=== PATIENT | male | born 1950 | race Caucasian/White ===

== ENCOUNTER 2022-01-31 05:36 | Inpatient (IN) | payer MEDICARE, BC ==
[2022-01-23 15:48] LABS: BASOPHILS % (AUTO) 0.5 % (0-1); EOSINOPHILS # (AUTO) 0.1 X10'3 (0-0.9); EOSINOPHILS % (AUTO) 1.7 % (0-6); LYMPHOCYTES # (AUTO) 0.5 X10'3 (1.1-4.8); LYMPHOCYTES % (AUTO) 9.4 % (21-51); MEAN CORPUSCULAR HEMOGLOBIN 29.8 PG (27.0-31.0); MEAN CORPUSCULAR HGB CONC 33.6 g/dL (33.0-36.5); MEAN CORPUSCULAR VOLUME 88.8 FL (78-98); MEAN PLATELET VOLUME 8.2 FL (7.4-10.4); MONOCYTES # (AUTO) 0.6 X10'3 (0-0.9); MONOCYTES % (AUTO) 11.4 % (2-12); PRE OP HEMATOCRIT 33.5 % (42.0-52.0); PRE OP HEMOGLOBIN 11.2 g/dL (14.0-17.9); PRE OP PLATELET COUNT 183 X10'3 (140-440); RED BLOOD COUNT 3.77 X10'6 (4.70-6.10); RED CELL DISTRIBUTION WIDTH 13.7 % (11.5-14.5)
[2022-01-23 16:02] LABS: ALBUMIN 3.6 G/DL (3.4-5.0); ALBUMIN/GLOBULIN RATIO 0.8 (1.1-1.5); ALKALINE PHOSPHATASE 72 IU/L (46-116); BLOOD UREA NITROGEN 26 MG/DL (7-18); CHLORIDE 103 MMOL/L (99-107); PRE OP ALT 22 U/L (30-65); PRE OP ANION GAP 9 (8-16); PRE OP AST 21 U/L (10-37); PRE OP BILIRUB, TOTAL 0.8 MG/DL (0.0-1.0); PRE OP GLUCOSE 94 MG/DL (70-104); PRE OP POTASSIUM 3.9 MMOL/L (3.4-5.1); PRE OP SODIUM 138 MMOL/L (135-145); TOTAL CARBON DIOXIDE 25.6 MMOL/L (24-32); eGFR 74 ML/MIN
[2022-01-31] VITALS (19 sets, daily range): BP systolic 103–166; BP diastolic 59–91
[~2022-01-31] VITALS: Ht 180.3 cm; Wt 114.2 kg
[~2022-01-31 05:36] MED LIST: ATOR10TA70 PO; FLUT12AE9 PO; LISI1TAB49 PO; MONT10TA21 PO; OMEP40CA21 PO; cefazolin/dext.iso 2gm/50ml IV ONE; famotidine 20mg tablet PO ONE; ringers solution, lacted 1,000 ML IV SCH
[2022-01-31] MEDS ORDERED: albuterol 2.5 MG/3 ML nebule NEB ONE (06:30)
[2022-01-31] MEDS ORDERED: BUPIVAcaine 0.5% inj/PF 30 ML ONE (06:48)
[2022-01-31] MEDS ORDERED: LIDOcaine 1% 30ml preserv. free vial ONE (06:48)
[2022-01-31] MEDS ORDERED: ringers solution, lacted 1,000 ML IV SCH (07:15)
[2022-01-31] MEDS ORDERED: labetalol 20mg/4ml (5mg/ml) syringe IV PRN (07:15)
[2022-01-31] MEDS ORDERED: morphine 4 MG/ML inj SYRINge IV PRN (07:15)
[2022-01-31] MEDS ORDERED: hydrALAZINE 20mg/ml inj. IV PRN (07:15)
[2022-01-31] MEDS ORDERED: morphine 2 MG/ML inj. syringe IV PRN (07:15)
[2022-01-31] MEDS ORDERED: fentaNYL/PF 50MCG/1 ML 2ML syringe IV PRN ×2 (07:15)
[2022-01-31] MEDS ORDERED: ondansetron/PF 4mg/2ml inj IV PRN ×2 (07:15→21:05)
[2022-01-31] MEDS ORDERED: fentaNYL /PF 50mcg/ml 5ml ampule ONE (07:22)
[2022-01-31] MEDS ORDERED: MIDAZolam 1 MG/ML 5ML VIAL ONE (07:22)
[2022-01-31] MEDS ORDERED: LIDOcaine 2% (20mg/ml) 5ml vial ONE (07:24)
[2022-01-31] MEDS ORDERED: glycopyrrolate 0.2mg/ml inj ONE (07:24)
[2022-01-31] MEDS ORDERED: neostigmine methylsulfate 1 MG/ML 10ml vial ONE (07:24)
[2022-01-31] MEDS ORDERED: rocuronium 10mg/ml inj IV ONE ×4 (07:24→11:28)
[2022-01-31] MEDS ORDERED: ondansetron/PF 4mg/2ml inj ONE (07:24)
[2022-01-31] MEDS ORDERED: propofol inj 20 ML IV ONE (07:24)
[2022-01-31] MEDS ORDERED: PHENYLephrine 10mg/ml 5ml injection IV ONE (07:33)
[2022-01-31] MEDS ORDERED: dexamethasone sod phosphate 10mg/ml inj ONE (07:33)
[2022-01-31] MEDS ORDERED: sevoflurane 250ml liquid IH ONE (07:33)
[2022-01-31] MEDS ORDERED: BUPIVAcaine 0.5% inj/PF 30 ml vial IJ ONE (08:14)
[2022-01-31] MEDS ORDERED: sugammadex 200mg/2ml injection IV ONE (09:38)
[2022-01-31] MEDS ORDERED: diatr meglu/diatrizoate 30ml oral sol.-(3 dose) bottle ONE (10:00)
[2022-01-31] MEDS ORDERED: LACTED IV SCH (12:05)
[2022-01-31] MEDS ORDERED: naloxone 0.4 mg/ml inj IV PRN (12:05)
[2022-01-31] MEDS ORDERED: HYDROmorph/NS 0.2 mg/ml PCA 100 ML IV SCH (12:05)
[2022-01-31] MEDS ORDERED: POTASSIUM CL IV SCH (12:05)
[2022-01-31] MEDS ORDERED: RINGERS IV SCH (12:05)
--- NOTE | 2022-01-31 12:05 | NUR ---
Received from OR via SURGICAL BED , accompanied by Anesthesiologist ANNAMARIE and report given by Anesthesiolgist. PATIENT WITH 4 LATERAL BANDAIDS PRESENT. NO DRAINAGE PRESTN. VSS. DENIES PAIN AT THIS TIME. Addendum: 01/31/22 at 1218 by Nikhil Browne RN RN Amended: Links added.
--- NOTE | 2022-01-31 13:03 | NUR ---
Patient in room PAS IN 901. I have received report from Nikhil NGUYEN and had the opportunity to ask questions and awaiting patients arrival .
--- NOTE | 2022-01-31 13:15 | NUR ---
PATIENT HAS MET ALL CRITERIA FOR TRANSFER TO THE SURGICAL FLOOR. VSS. DRESSINGS INTACT. BED LOW, CALL LIGHT PRESENT AND 2 RAILS UP. RN PRESENT TO ACCEPT CARE OF PATIENT AND REPORT HAS BEEN CALLED. ALL QUESTIONS ANSWERED TO ACCEPTING RN JENNIFER- WHO WAS PRESENT AT BEDSIDE TO ASSIST IN SET UP AND TO ASSESS PATIENT. ONE LABELED BAG OF BELONGINGS WELL GLASSES IN A LABELED CONTAINER ARE NOW IN ROOM AT BEDSIDE 345B.CARE TURNED OVER. Addendum: 01/31/22 at 1344 by Nikhil Carpenter - WENDY RN Amended: Links added.
[2022-01-31] MEDS: HYDROmorph/NS 0.2 mg/ml PCA 100 ML IV SCH ×6 (13:16→23:00)
[2022-01-31] MEDS: potassium Cl 20mEq in NS 1,000 ML IV SCH ×2 (13:45→21:52)
--- NOTE | 2022-01-31 13:49 | NUR ---
patient arrived in room 345b in stable condition. Four bandaides CDI to abdomen. patient states pain level 6. patient has dilaudid cadd, instructions reiterated . VS 160/85,98%O2 HR 97 Resp 18. post op vitals initiated. IDC in place draining clear yellow urine . will continue to monitor patient
--- NOTE | 2022-01-31 18:30 | NUR ---
Problems reprioritized. Patient report given, questions answered & plan of care reviewed with Amy NGUYEN.
[2022-01-31] MEDS: budesonide 0.5mg/2ml UD nebule IH SCH (20:35)
[2022-01-31] MEDS: heparin, porcine 5000 units/ml vial SQ SCH (20:58)
[2022-02-01] VITALS: BP 135/79
[2022-02-01] MEDS: HYDROmorph/NS 0.2 mg/ml PCA 100 ML IV SCH ×6 (01:00→11:00)
[2022-02-01] MEDS: potassium Cl 20mEq in NS 1,000 ML IV SCH (03:52)
[2022-02-01 04:00] VITALS: BP 126/61
[2022-02-01 06:08] LABS: ALBUMIN 2.8 G/DL (3.4-5.0); ANION GAP 7 (8-16); BASOPHILS % (AUTO) 0.1 % (0-1); BLOOD UREA NITROGEN 18 MG/DL (7-18); BUN/CREATININE RATIO 17.8 (5.4-32.0); CALCIUM 7.9 MG/DL (8.5-10.1); CHLORIDE 105 MMOL/L (99-107); CREATININE 1.01 MG/DL (0.60-1.10); EOSINOPHILS % (AUTO) 0 % (0-6); GLUCOSE 125 MG/DL (70-104); HEMATOCRIT 29.3 % (42.0-52.0); HEMOGLOBIN 9.9 g/dl (14.0-17.9); LYMPHOCYTES # (AUTO) 0.5 X10'3 (1.1-4.8); LYMPHOCYTES % (AUTO) 6.4 % (21-51); MEAN CORPUSCULAR HEMOGLOBIN 30.4 PG (27.0-31.0); MEAN CORPUSCULAR HGB CONC 33.9 g/dL (33.0-36.5); MEAN CORPUSCULAR VOLUME 89.7 FL (78-98); MEAN PLATELET VOLUME 8.2 FL (7.4-10.4); MONOCYTES # (AUTO) 0.9 X10'3 (0-0.9); MONOCYTES % (AUTO) 12.4 % (2-12); NEUTROPHILS # (AUTO) 6.1 X10'3 (1.8-7.7); NEUTROPHILS % (AUTO) 81.1 % (42-75); PLATELET COUNT 154 X10'3 (140-440); POTASSIUM 4.7 MMOL/L (3.5-5.1); RED BLOOD COUNT 3.27 X10'6 (4.70-6.10); RED CELL DISTRIBUTION WIDTH 14.2 % (11.5-14.5); SODIUM 140 MMOL/L (135-145); TOTAL CARBON DIOXIDE 28.3 MMOL/L (24-32); WHITE BLOOD COUNT 7.5 X10'3 (4.5-11.0); eGFR 73 ML/MIN
--- NOTE | 2022-02-01 06:40 | NUR ---
Problems reprioritized. Patient report given, questions answered & plan of care reviewed with WENDY Rodríguez.
--- NOTE | 2022-02-01 06:51 | NUR ---
Seth cath removed 10 cc of saline out of balloon. Pt tolerated well.
--- NOTE | 2022-02-01 06:57 | NUR ---
Spoke to Breann from Radiology about the order for esophagram today. She said patient does not need to be NPO and that we do not have a staff master certified rv technician. She told me that it will be an interventional radiologist who can do it and that we go with what their schedule but hoping we can get it done early.
[2022-02-01 07:00] VITALS: BP 115/71
[2022-02-01] MEDS ORDERED: HYDROchlorothiazide 12.5mg capsule PO SCH (08:00)
[2022-02-01] MEDS ORDERED: pantoprazole 40mg Tablet.DR PO SCH (08:00)
[2022-02-01] MEDS ORDERED: montelukast 10mg tablet PO SCH (08:00)
[2022-02-01] MEDS ORDERED: lisinopril 10 MG tablet PO SCH (08:00)
[2022-02-01] MEDS: heparin, porcine 5000 units/ml vial SQ SCH (09:39)
[2022-02-01] MEDS: budesonide 0.5mg/2ml UD nebule IH SCH (10:00)
[2022-02-01] MEDS ORDERED: normal saline 500ml IV soln 500 ML IV ONE (11:35)
[2022-02-01 12:00] VITALS: BP 126/70
[2022-02-01] MEDS ORDERED: oxyCODONE/APAP 5-325mg tablet PO PRN (14:10)
--- NOTE | 2022-02-01 14:16 | NUR ---
Spoke to Dr. Pham on the phone, he said he is planning to send patient home today provided patient tolerating the full liquid diet, and esophagram result is fine. He instructed me to have the dietitian come talk to patient in regards to his full liquid diet that is expected to be for 2 weeks.
[2022-02-01] MEDS ORDERED: CADD PCA waste documentation MC SCH (14:30)
--- NOTE | 2022-02-01 14:56 | NUR ---
Nutrition consult: Pt s/p Toupet fundoplication. Pt seen at bedside provided with written and verbal nutrition therapy education which includes diet progression and ONS coupons. All of patient's questions were answered at this time. RD contact information provided and pt encouraged to reach out if needed. Will remain available. Addendum: 02/01/22 at [address] Amended: Links added.
--- NOTE | 2022-02-01 15:34 | NUR ---
Spoke to Dr. Pham regarding patient tolerated his full liquid diet for lunch, esophagram negative for leak, dietitian saw the patient already, and that patient wants his prescription send to [facility] in [employer] at [facility]. Dr. Pham said he will write a discharge order.
[2022-02-01] MEDS ORDERED: PER5325T PO (16:14)
--- NOTE | 2022-02-01 17:00 | NUR ---
Discharged patient home accompanied by his at bedside. Discharge instructions given to patient, patient verbalized understanding of all instructions given. Peripheral IV catheter removed, tip intact. Instructed patient to ensure he has all his belongings with him before leaving the hospital. Patient was given Percocet prior to leaving the hospital, patient was given education about taking narcotic, side effects, precaution.
== END 2022-02-01 17:11 | disposition home or self-care (01) | DRG 328 ==
LOC: PAS IN 05:36 → SUR 3N 13:40
PROVIDERS: ADMIT Surgery; ATTEND Surgery
PROC: 0DV44ZZ Restriction of Esophagogastric Junction, Percutaneous Endoscopic Approach (ICD-10-PCS; 2022-01-31)
PROC: 8E0W4CZ Robotic Assisted Procedure of Trunk Region, Percutaneous Endoscopic Approach (ICD-10-PCS; 2022-01-31)
PROC: 0BQT4ZZ Repair Diaphragm, Percutaneous Endoscopic Approach (ICD-10-PCS; principal; 2022-01-31 07:33)
PROC: BD11YZZ Fluoroscopy of Esophagus using Other Contrast (ICD-10-PCS; 2022-02-01)
DX: K44.9 Diaphragmatic hernia without obstruction or gangrene (principal); E66.9 Obesity, unspecified; Z79.899 Other long term (current) drug therapy; Z68.35 Body mass index [BMI] 35.0-35.9, adult; I10 Essential (primary) hypertension; G47.33 Obstructive sleep apnea (adult) (pediatric); J45.909 Unspecified asthma, uncomplicated; E78.5 Hyperlipidemia, unspecified; K21.9 Gastro-esophageal reflux disease without esophagitis
CPT/HCPCS: 36415; 71045; 74220; 80048; 80053; 82948; 85025; 87081; 93005; 94640; A4618; C1758; G0378; J0690; J1100; J1170; J1644; J2250; J2270; J2370; J2405; J2704; J2710; J3010; J3480; J3490; J7120; Q9963; S0020; U0003; U0005

== ENCOUNTER 2022-09-27 16:17 | Emergency (ER) | payer MEDICARE, BC ==
[~2022-09-27] VITALS: Ht 180.3 cm; Wt 109.1 kg
[~2022-09-27 16:17] MED LIST changes: +PER5325T PO; -cefazolin/dext.iso 2gm/50ml IV ONE; -famotidine 20mg tablet PO ONE; -ringers solution, lacted 1,000 ML IV SCH
[2022-09-27 16:40] VITALS: BP 128/67
[2022-09-27 17:49] LABS: BASOPHILS % (AUTO) 0.6 % (0-1); EOSINOPHILS # (AUTO) 0.1 X10'3 (0-0.9); EOSINOPHILS % (AUTO) 1.8 % (0-6); HEMATOCRIT 39.2 % (42.0-52.0); HEMOGLOBIN 13.9 g/dl (14.0-17.9); LYMPHOCYTES # (AUTO) 0.6 X10'3 (1.1-4.8); LYMPHOCYTES % (AUTO) 9.1 % (21-51); MEAN CORPUSCULAR HEMOGLOBIN 34.6 PG (27.0-31.0); MEAN CORPUSCULAR HGB CONC 35.5 g/dL (33.0-36.5); MEAN CORPUSCULAR VOLUME 97.5 FL (78-98); MEAN PLATELET VOLUME 8.3 FL (7.4-10.4); MONOCYTES # (AUTO) 0.6 X10'3 (0-0.9); MONOCYTES % (AUTO) 9.2 % (2-12); NEUTROPHILS # (AUTO) 5.6 X10'3 (1.8-7.7); NEUTROPHILS % (AUTO) 79.3 % (42-75); PLATELET COUNT 182 X10'3 (140-440); RED BLOOD COUNT 4.02 X10'6 (4.70-6.10); RED CELL DISTRIBUTION WIDTH 13.3 % (11.5-14.5)
[2022-09-27 17:54] LABS: ALANINE AMINOTRANSFERASE 36 U/L (12-78); ALBUMIN 3.7 G/DL (3.4-5.0); ALBUMIN/GLOBULIN RATIO 0.8 (1.1-1.5); ALKALINE PHOSPHATASE 96 IU/L (46-116); ANION GAP 4 (8-16); ASPARTATE AMINO TRANSFERASE 41 U/L (10-37); BILIRUBIN,TOTAL 2.1 MG/DL (0.1-1.0); BLOOD UREA NITROGEN 22 MG/DL (7-18); CALCIUM 9.1 MG/DL (8.5-10.1); CHLORIDE 102 MMOL/L (99-107); GLUCOSE 131 MG/DL (70-104); LIPASE 81 U/L (73-393); POTASSIUM 4.2 MMOL/L (3.5-5.1); SODIUM 137 MMOL/L (135-145); TOTAL CARBON DIOXIDE 31.5 MMOL/L (24-32); TOTAL PROTEIN 8.5 G/DL (6.4-8.2); eGFR 66 ML/MIN
== END 2022-09-27 23:10 | disposition left against medical advice (07) ==
LOC: ER 16:18
DX: R10.9 Unspecified abdominal pain (principal); Z53.21 Procedure and treatment not carried out due to patient leaving prior to being seen by health care provider
CPT/HCPCS: 36415; 80053; 83690; 85025

== ENCOUNTER 2023-01-21 14:19 | Emergency (ER) | payer MEDICARE, BC ==
[~2023-01-21] VITALS: Ht 188 cm; Wt 113.6 kg
[~2023-01-21 14:19] MED LIST changes: +MONT-47 PO; -MONT10TA21 PO
[2023-01-21 14:43] VITALS: BP 140/74
[2023-01-21 15:12] LABS: BASOPHILS % (AUTO) 0.3 % (0-1); EOSINOPHILS % (AUTO) 0.1 % (0-6); HEMATOCRIT 37.8 % (42.0-52.0); HEMOGLOBIN 13.4 g/dl (14.0-17.9); LYMPHOCYTES # (AUTO) 0.6 X10'3 (1.1-4.8); LYMPHOCYTES % (AUTO) 6.5 % (21-51); MEAN CORPUSCULAR HEMOGLOBIN 34.3 PG (27.0-31.0); MEAN CORPUSCULAR HGB CONC 35.3 g/dL (33.0-36.5); MEAN CORPUSCULAR VOLUME 97.2 FL (78-98); MEAN PLATELET VOLUME 7.3 FL (7.4-10.4); MONOCYTES # (AUTO) 1.4 X10'3 (0-0.9); NEUTROPHILS # (AUTO) 7.7 X10'3 (1.8-7.7); NEUTROPHILS % (AUTO) 79.1 % (42-75); PLATELET COUNT 181 X10'3 (140-440); RED BLOOD COUNT 3.89 X10'6 (4.70-6.10); RED CELL DISTRIBUTION WIDTH 12.5 % (11.5-14.5); WHITE BLOOD COUNT 9.7 X10'3 (4.5-11.0)
[2023-01-21] MEDS ORDERED: predniSONE 20 mg tablet PO ONE (15:15)
[2023-01-21] MEDS ORDERED: ipratropium/albuterol 3ml nebule NEB ONE (15:15)
[2023-01-21 15:27] LABS: D-DIMER 0.44 MG/L FEU (0-0.50)
[2023-01-21 15:36] LABS: ANION GAP 6 (8-16); BILIRUBIN,TOTAL 1.4 MG/DL (0.1-1.0); BLOOD UREA NITROGEN 18 MG/DL (7-18); BUN/CREATININE RATIO 16.5 (10.0-20.0); CALCIUM 8.7 MG/DL (8.5-10.1); CHLORIDE 98 MMOL/L (99-107); CREATININE 1.09 MG/DL (0.60-1.10); GLUCOSE 176 MG/DL (70-104); POTASSIUM 3.5 MMOL/L (3.5-5.1); SODIUM 131 MMOL/L (135-145); TOTAL PROTEIN 8.5 G/DL (6.4-8.2); eGFR 67 ML/MIN
[2023-01-21 15:37] LABS: ALANINE AMINOTRANSFERASE 16 U/L (12-78); ALBUMIN/GLOBULIN RATIO 0.5 (1.1-1.5); ALKALINE PHOSPHATASE 78 IU/L (46-116); ASPARTATE AMINO TRANSFERASE 18 U/L (10-37)
[2023-01-21] MEDS ORDERED: DOXYCYCLINE 100MG CAPSULE PO STA (16:02)
[2023-01-21] MEDS ORDERED: amoxicillin 250mg capsule PO ONE (16:05)
[2023-01-21 17:38] LABS: CLARITY,URINE SLIGHTLY CLOUDY (Clear); COLOR,URINE YELLOW (Yellow); GLUCOSE, URINE NEGATIVE (Neg); KETONES,URINE NEGATIVE (Neg); LEUKOCYTE ESTERASE ,URINE NEGATIVE (Neg); NITRITES, URINE NEGATIVE (Neg); OCCULT BLOOD,URINE LARGE (Neg); PROTEIN,URINE 100 mg/dl (Neg)
[2023-01-21 17:43] LABS: UA COLLECTION TYPE CLN CATCH MIDSTREAM
[2023-01-21 17:45] LABS: RBC,URINE 20-50 /HPF (0-2); WBC,URINE 0-4 /HPF (0-4)
[2023-01-21 17:46] LABS: BACTERIA,URINE 1+ /HPF (Neg); SQUAMOUS EPITHELIAL CELL,UR FEW /LPF (FEW)
[2023-01-21] MEDS ORDERED: ALBU8HFA PO (17:56)
[2023-01-21] MEDS ORDERED: DOXY100C76 PO (17:56)
[2023-01-21] MEDS ORDERED: PRED20TA PO (17:56)
[2023-01-21] MEDS ORDERED: AMOX500C2 PO (17:56)
== END 2023-01-21 18:16 | disposition home or self-care (01) ==
LOC: ER 14:20
DX: J18.9 Pneumonia, unspecified organism (principal); Z20.822 Contact with and (suspected) exposure to COVID-19; Z79.899 Other long term (current) drug therapy
CPT/HCPCS: 36415; 71045; 80053; 81001; 83605; 83880; 84145; 84484; 85025; 85379; 87040; 87502; 87503; 87811; 93005; 94640; 99285; J7512

== ENCOUNTER 2023-02-08 06:27 | Day surgery (SDC) | payer MEDICARE, BC ==
[2023-02-05 16:03] LABS: BASOPHILS # (AUTO) 0.1 X10'3 (0-0.2); BASOPHILS % (AUTO) 1.7 % (0-1); EOSINOPHILS # (AUTO) 0.1 X10'3 (0-0.9); LYMPHOCYTES # (AUTO) 0.5 X10'3 (1.1-4.8); LYMPHOCYTES % (AUTO) 8.4 % (21-51); MEAN CORPUSCULAR HEMOGLOBIN 33.6 PG (27.0-31.0); MEAN CORPUSCULAR HGB CONC 34.6 g/dL (33.0-36.5); MEAN CORPUSCULAR VOLUME 97.2 FL (78-98); MEAN PLATELET VOLUME 7.1 FL (7.4-10.4); MONOCYTES # (AUTO) 0.8 X10'3 (0-0.9); MONOCYTES % (AUTO) 12.2 % (2-12); NEUTROPHILS # (AUTO) 4.7 X10'3 (1.8-7.7); NEUTROPHILS % (AUTO) 75.7 % (42-75); PRE OP HEMOGLOBIN 12.5 g/dL (14.0-17.9); PRE OP PLATELET COUNT 258 X10'3 (140-440); RED CELL DISTRIBUTION WIDTH 12.4 % (11.5-14.5)
[2023-02-05 16:10] LABS: ALBUMIN 2.7 G/DL (3.4-5.0); ALBUMIN/GLOBULIN RATIO 0.5 (1.1-1.5); ALKALINE PHOSPHATASE 76 IU/L (46-116); BLOOD UREA NITROGEN 19 MG/DL (7-18); BUN/CREATININE RATIO 18.4 (10.0-20.0); CALCIUM 9.1 MG/DL (8.5-10.1); CHLORIDE 101 MMOL/L (99-107); CREATININE 1.03 MG/DL (0.60-1.10); PRE OP ALT 23 U/L (30-65); PRE OP ANION GAP 6 (8-16); PRE OP AST 14 U/L (10-37); PRE OP BILIRUB, TOTAL 0.5 MG/DL (0.0-1.0); PRE OP GLUCOSE 122 MG/DL (70-104); PRE OP POTASSIUM 4.1 MMOL/L (3.4-5.1); PRE OP SODIUM 135 MMOL/L (135-145); TOTAL CARBON DIOXIDE 28.3 MMOL/L (24-32); TOTAL PROTEIN 8.5 G/DL (6.4-8.2); eGFR 71 ML/MIN
[2023-02-08] VITALS (8 sets, daily range): BP systolic 125–156; BP diastolic 68–83
[~2023-02-08] VITALS: Ht 180.3 cm; Wt 107.5 kg
[~2023-02-08 06:27] MED LIST changes: +ALBU8HFA PO; +INDOCYANINE GREEN 25 MG/10 ML VIAL IV ONE; -PER5325T PO; +albuterol 2.5 MG/3 ML nebule NEB ONE; +cefazolin 2gm/D5W 100mL 100 ML IV ONE; +famotidine 20mg tablet PO ONE; +ringers solution, lacted 1,000 ML IV SCH
[2023-02-08] MEDS ORDERED: LIDOcaine 1% 30ml preserv. free vial ONE (06:50)
[2023-02-08] MEDS ORDERED: BUPIVAcaine/PF 2.5 mg/ml (0.25%) 30ml vial ONE (06:51)
[2023-02-08] MEDS ORDERED: sevoflurane 250ml liquid IH ONE (08:52)
[2023-02-08] MEDS ORDERED: midazolam 1 mg/ML 2ml injection ONE (08:56)
[2023-02-08] MEDS ORDERED: fentaNYL /PF 50mcg/ml 5ml ampule ONE (08:56)
[2023-02-08] MEDS ORDERED: propofol inj 20 ML IV ONE (09:10)
[2023-02-08] MEDS ORDERED: ondansetron/PF 4mg/2ml inj ONE (09:10)
[2023-02-08] MEDS ORDERED: LIDOcaine 2% (20mg/ml) 5ml vial ONE (09:10)
[2023-02-08] MEDS ORDERED: rocuronium 10mg/ml inj IV ONE (09:10)
[2023-02-08] MEDS ORDERED: dexamethasone sod phosphate 4mg/ml inj. ONE (09:10)
[2023-02-08] MEDS ORDERED: ringers solution, lacted 1,000 ML IV SCH (09:15)
[2023-02-08] MEDS ORDERED: labetalol 20mg/4ml (5mg/ml) syringe IV PRN (09:15)
[2023-02-08] MEDS ORDERED: acetaminophen 1,000mg/100ml IV 100 ML IV PRN (09:15)
[2023-02-08] MEDS ORDERED: morphine 2 MG/ML inj. syringe IV PRN (09:15)
[2023-02-08] MEDS ORDERED: proCHLORperazine 10 MG/2 ml inj IV PRN (09:15)
[2023-02-08] MEDS ORDERED: hydrALAZINE 20mg/ml inj. IV PRN (09:15)
[2023-02-08] MEDS ORDERED: ondansetron/PF 4mg/2ml inj IV PRN (09:15)
[2023-02-08] MEDS ORDERED: morphine 4 MG/ML inj SYRINge IV PRN (09:15)
[2023-02-08] MEDS ORDERED: meperidine/PF 25mg/ml syringe IV PRN ×2 (09:15)
[2023-02-08] MEDS ORDERED: ePHEDrine 50MG/ML INJ. ONE (11:00)
[2023-02-08] MEDS ORDERED: neostigmine methylsulfate 1 MG/ML 10ml vial ONE (11:00)
[2023-02-08] MEDS ORDERED: glycopyrrolate 0.2mg/ml inj ONE (11:00)
--- NOTE | 2023-02-08 11:12 | NUR ---
Received from OR via [facility], accompanied by Anesthesiologist and report given by Anesthesiologist. PATIENT WAKING UP, NO S/S OF PAIN, V/S WNL, SCD ON , PIV 20G LEFT HAND, BANDAID LAPS SITES CLOSED C/D/I TO ABDOMEN. CARMELO DRAINING BROWN FLUID 25CC NOTED ON RIGHT LOWER QUADRANT. Addendum: 02/08/23 at 1238 by Melchor Nicole RN Amended: Links added.
[2023-02-08] MEDS: meperidine/PF 25mg/ml syringe IV PRN ×2 (11:27→11:40)
[2023-02-08] MEDS ORDERED: oxyCODONE/APAP 5-325mg tablet PO PRN (11:30)
--- NOTE | 2023-02-08 12:32 | NUR ---
ALL DISCHARGE CRITERIA HAS BEEN MET. VSS, PAIN AT A TOLERABLE LEVEL, ABLE TO SAFELY AMBULATE AND TRANSFER SELF. IV TAKEN OUT WITHOUT ANY COMPLICATIONS. ALL DISCHARGE INSTRUCTIONS COVERED WITH PATIENT AND ALL QUESTIONS ANSWERED. PATIENT TAKEN OUT VIA WHEELCHAIR WITH ALL BELONGINGS TO PERSONAL VEHICLE WHERE FAMILY DROVE PATIENT HOME. Addendum: 02/08/23 at 1237 by Melchor Nicole RN Amended: Links added.
== END 2023-02-08 12:32 | disposition home or self-care (01) ==
LOC: PAS 06:27
PROVIDERS: ATTEND Surgery
DX: K80.12 Calculus of gallbladder with acute and chronic cholecystitis without obstruction (principal); K42.9 Umbilical hernia without obstruction or gangrene; I10 Essential (primary) hypertension; G47.33 Obstructive sleep apnea (adult) (pediatric); J45.909 Unspecified asthma, uncomplicated; E66.9 Obesity, unspecified; Z68.33 Body mass index [BMI] 33.0-33.9, adult; Z79.899 Other long term (current) drug therapy; Z98.890 Other specified postprocedural states; Z87.01 Personal history of pneumonia (recurrent)
CPT/HCPCS: 36415; 47563; 49591; 80053; 82948; 85025; 94640; J0131; J0690; J1100; J2175; J2250; J2270; J2405; J2704; J2710; J3010; J3490; J7030; J7120; Z7506; Z7508; Z7512; 88304; 88341; 88342; A4215; A4618; A7000

== ENCOUNTER 2023-10-04 06:53 | Day surgery (SDC) | payer MEDICARE, BC ==
[2023-10-01 16:09] LABS: BASOPHILS % (AUTO) 0.6 % (0-1); EOSINOPHILS # (AUTO) 0.2 X10'3 (0-0.9); EOSINOPHILS % (AUTO) 4.7 % (0-6); LYMPHOCYTES # (AUTO) 0.7 X10'3 (1.1-4.8); MEAN CORPUSCULAR HEMOGLOBIN 34.2 PG (27.0-31.0); MEAN CORPUSCULAR HGB CONC 34.6 g/dL (33.0-36.5); MEAN CORPUSCULAR VOLUME 98.9 FL (78-98); MONOCYTES # (AUTO) 0.5 X10'3 (0-0.9); MONOCYTES % (AUTO) 16.3 % (2-12); NEUTROPHILS # (AUTO) 1.9 X10'3 (1.8-7.7); NEUTROPHILS % (AUTO) 58.4 % (42-75); PRE OP HEMATOCRIT 37.7 % (42.0-52.0); PRE OP PLATELET COUNT 162 X10'3 (140-440); PRE OP WHITE BLOOD COUNT 3.3 10'3 (4.8-10.8); RED BLOOD COUNT 3.81 X10'6 (4.70-6.10); RED CELL DISTRIBUTION WIDTH 13.2 % (11.5-14.5)
[2023-10-01 16:19] LABS: ALBUMIN 3.5 G/DL (3.4-5.0); ALBUMIN/GLOBULIN RATIO 0.8 (1.1-1.5); ALKALINE PHOSPHATASE 84 IU/L (46-116); BLOOD UREA NITROGEN 19 MG/DL (7-18); BUN/CREATININE RATIO 17.8 (10.0-20.0); CALCIUM 9.3 MG/DL (8.5-10.1); CHLORIDE 102 MMOL/L (99-107); CREATININE 1.07 MG/DL (0.60-1.10); PRE OP ALT 29 U/L (30-65); PRE OP ANION GAP 6 (8-16); PRE OP AST 23 U/L (10-37); PRE OP BILIRUB, TOTAL 0.9 MG/DL (0.0-1.0); PRE OP GLUCOSE 105 MG/DL (70-104); PRE OP POTASSIUM 3.7 MMOL/L (3.4-5.1); PRE OP SODIUM 138 MMOL/L (135-145); TOTAL CARBON DIOXIDE 29.7 MMOL/L (24-32); eGFR 68 ML/MIN
[2023-10-01 16:52] LABS: TOTAL CELLS COUNTED 100
[2023-10-01 16:54] LABS: PLATELET ESTIMATE NORMAL
[~2023-10-04] VITALS: Ht 180.3 cm; Wt 110.2 kg
[2023-10-04] VITALS (11 sets, daily range): BP systolic 116–158; BP diastolic 51–88; PULSE 54–101; RESP 10–18; TEMP 98; O2SAT 93–100
[~2023-10-04 06:53] MED LIST changes: +ALBU6.7H14 INH; -ALBU8HFA PO; -INDOCYANINE GREEN 25 MG/10 ML VIAL IV ONE; -albuterol 2.5 MG/3 ML nebule NEB ONE
[2023-10-04] MEDS ORDERED: BUPIVAcaine/PF 2.5mg/ml (0.25%) 10ml vial ONE (09:14)
[2023-10-04] MEDS ORDERED: LIDOcaine 1% 30ml preserv. free vial ONE (09:14)
[2023-10-04] MEDS ORDERED: morphine 2 MG/ML inj. syringe IV PRN (09:25)
[2023-10-04] MEDS ORDERED: hydrALAZINE 20mg/ml inj. IV PRN (09:25)
[2023-10-04] MEDS ORDERED: proCHLORperazine 10 MG/2 ml inj IV PRN (09:25)
[2023-10-04] MEDS ORDERED: ringers solution, lacted 1,000 ML IV SCH (09:25)
[2023-10-04] MEDS ORDERED: ketorolac tromethamine 15mg/ml inj. IV ONE (09:25)
[2023-10-04] MEDS ORDERED: ondansetron/PF 4mg/2ml inj IV PRN (09:25)
[2023-10-04] MEDS ORDERED: morphine 4 MG/ML inj SYRINge IV PRN (09:25)
[2023-10-04] MEDS ORDERED: acetaminophen 1,000mg/100ml IV 100 ML IV ONE (09:25)
[2023-10-04] MEDS ORDERED: meperidine/PF 25mg/ml syringe IV PRN ×3 (09:25)
[2023-10-04] MEDS ORDERED: labetalol 20mg/4ml (5mg/ml) syringe IV PRN (09:25)
[2023-10-04] MEDS ORDERED: sevoflurane 250ml liquid IH ONE (09:30)
[2023-10-04] MEDS ORDERED: midazolam 1 mg/ML 2ml injection ONE (09:32)
[2023-10-04] MEDS ORDERED: fentaNYL /PF 50mcg/ml 5ml ampule ONE (09:33)
[2023-10-04] MEDS ORDERED: ePHEDrine 50MG/ML INJ. ONE (09:42)
[2023-10-04] MEDS ORDERED: ondansetron/PF 4mg/2ml inj ONE (09:42)
[2023-10-04] MEDS ORDERED: rocuronium 10mg/ml inj IV ONE (09:43)
[2023-10-04] MEDS ORDERED: LIDOcaine 2% (20mg/ml) 5ml vial ONE (09:43)
[2023-10-04] MEDS ORDERED: propofol inj 20 ML IV ONE (09:43)
[2023-10-04] MEDS ORDERED: 0.9 % SODIUM CHLORIDE 10 ML VIAL ONE (09:43)
[2023-10-04] MEDS ORDERED: dexamethasone sod phosphate 4mg/ml inj. ONE (09:43)
[2023-10-04] MEDS ORDERED: neostigmine methylsulfate 1 MG/ML 10ml vial ONE (10:28)
[2023-10-04] MEDS ORDERED: glycopyrrolate 0.2mg/ml inj ONE (10:28)
[2023-10-04] MEDS ORDERED: oxyCODONE/APAP 5-325mg tablet PO PRN (10:45)
== END 2023-10-04 11:57 | disposition home or self-care (01) ==
LOC: PAS 06:53
PROVIDERS: ATTEND Surgery
DX: K43.0 Incisional hernia with obstruction, without gangrene (principal); J45.909 Unspecified asthma, uncomplicated; I10 Essential (primary) hypertension; K21.9 Gastro-esophageal reflux disease without esophagitis; G47.33 Obstructive sleep apnea (adult) (pediatric); I45.10 Unspecified right bundle-branch block; E66.9 Obesity, unspecified; Z68.33 Body mass index [BMI] 33.0-33.9, adult; Z79.899 Other long term (current) drug therapy; Z98.890 Other specified postprocedural states; Z90.49 Acquired absence of other specified parts of digestive tract
CPT/HCPCS: 36415; 49616; 80053; 82948; 85025; C1781; J0131; J0690; J1100; J1885; J2250; J2405; J2704; J2710; J3010; J3490; J7030; J7120; Z7506; Z7508; Z7512; 85007; A4215; A4618; A7000

== ENCOUNTER 2025-08-24 10:25 | Outpatient (CLI) | payer MEDICARE, BC ==
[~2025-08-24 10:25] MED LIST changes: -cefazolin 2gm/D5W 100mL 100 ML IV ONE; -famotidine 20mg tablet PO ONE; -ringers solution, lacted 1,000 ML IV SCH
[2025-08-24] MEDS ORDERED: iohexol 300mg/ml 100ml inj. ONE (11:24)
--- NOTE | 2025-08-24 14:00 | RADIOLOGY REPORT ---
EXAM: CT CT ABDOMEN PELVIS HISTORY: ABDOMINAL PAIN, JAUNDICE, INC BILIRUBIN TECHNIQUE: Volumetric multidetector CT images of the abdomen and pelvis were obtained after the administration of intravenous contrast. All CT scans at this facility use dose modulation, iterative reconstruction, and/or weight based dosing when appropriate to reduce radiation dose to as low as reasonably achievable. COMPARISON: None FINDINGS: [LOWER CHEST]: Trace right pleural effusion. Compressive atelectasis in the right lung base. Large sliding hiatal hernia [LIVER]: Normal hepatic size without suspicious focal lesion. [GALLBLADDER AND BILIARY TREE]: Surgically absent. [SPLEEN]: Unremarkable. [PANCREAS]: Unremarkable. [ADRENAL GLANDS]: Unremarkable [KIDNEYS]: No hydronephrosis. No nephroureterolithiasis. [BLADDER]: Unremarkable for the degree distention. [REPRODUCTIVE ORGANS]: [id number] prostatomegaly [BOWEL/MESENTERY]: Large sliding hiatal hernia question slight gastric rugal prominence correlate for underlying chronic gastritis. Trace inflammatory stranding along the margin primarily anti mesenteric size along the distal descending colon to sigmoid flexure with moderate to severe sigmoid and desce nding colonic diverticulosis. Mild stool burden. Normal appendix. [ASCITES]: Absent [LYMPHADENOPATHY]: No pathologically enlarged lymph nodes by CT size criteria [VASCULATURE]: No aneurysmal dilatation. [ABDOMINAL WALL]: Unremarkable. [MUSCULOSKELETAL]: No acute fracture or aggressive focal osseous lesion. IMPRESSION: 1. No CT evidence of an acute abdominal/pelvic process. 2. Large sliding hiatal hernia. 3. Question slight gastric rugal prominence correlate for underlying chronic gastritis. 4. Trace inflammatory stranding along the margin primarily anti mesenteric size along the distal descending colon to sigmoid flexure with moderate to severe sigmoid and descending colonic diverticulosis.
== END 2025-08-24 23:59 | disposition home or self-care (01) ==
LOC: RAD 10:25
PROVIDERS: ATTEND Nurse Practitioner Family
DX: K57.30 Diverticulosis of large intestine without perforation or abscess without bleeding (principal); R10.9 Unspecified abdominal pain; J98.11 Atelectasis; N40.0 Benign prostatic hyperplasia without lower urinary tract symptoms; K44.9 Diaphragmatic hernia without obstruction or gangrene
CPT/HCPCS: 74178; Q9967

== ENCOUNTER 2025-09-23 10:40 | Emergency (ER) | payer MEDICARE, BC ==
[~2025-09-23] VITALS: Ht 180.3 cm; Wt 104.8 kg
[2025-09-23 11:20] LABS: MEAN PLATELET VOLUME 8.6 FL (7.4-10.4); RED CELL DISTRIBUTION WIDTH 12.9 % (11.5-14.5)
--- NOTE | 2025-09-23 11:20 | Physician Documentation ---
History of Present Illness General Chief Complaint: Abdominal Pain w/vomiting Stated Complaint: ABD PAIN Time Seen by MD: 14:33 History of Present Illness Initial Comments 75-year-old male with PMH of HTN HLD presented to the ED in view of intermittent epigastric pain since the last four weeks with worsened this morning. Patient complains of 8/10 cramping type of pain with no radiation with no factors that increase decreases the pain in specific. With the patient states that his pain goes away after having an episode of vomitings but comes back again. Patient feels bloated and pressure-like. Patient underwent endoscopy and colonoscopy 1- 2 years ago which was unremarkable. Patient does not have burning sensation. Patient denies sick contacts or travel history. Patient's last bowel movement was this morning, no diarrhea or constipation and was a usual regular movement. Patient states that his skin turns yellow and has been referred by his primary care in view of abnormal lipid panel to the liver DrAngi that is evaluating the patient currently. Patient had an abnormal hepatitis-A panel. CT abdomen shows intra and extrahepatic ductal dilatation with CBD duct dilatation which is new from the prior CT, MRCP for further evaluation. Medication Reconciliation Allergies: Coded Allergies: No Known Allergies (Unverified , 09/27/22) Scheduled Albuterol Sulfate (Proventil Hfa), 2 PUFFS INH Q4H, (Reported) Atorvastatin Calcium (Atorvastatin Calcium), 1 TAB PO DAILY, (Reported) Fluticasone Propionate (Flovent Hfa), 44 MCG PO BID, (Reported) Lisinopril/Hydrochlorothiazide (Lisinopril-Hctz 10-12.5 mg Tab), 1 TAB PO DAILY, (Reported) Montelukast Sodium (Singulair), 1 TAB PO DAILY, (Reported) Omeprazole (Prilosec), 1 CAP PO QAM, (Reported) Scheduled PRN Benzonatate* (Benzonatate*), 1 CAP PO Q6H PRN for cough ONDANSETRON ODT 4mg tablet (Ondansetron Odt), 1 TABLET PO Q6H PRN for nausea/vomiting Past Medical History Other Past Medical History: HTN, HLD, asthma, hiatal hernia status post surgery Other Past Surgical History: Hiatal hernia surgery Cholecystectomy Smoking: Non-Smoker Alcohol Use: Sober (Consumed hard liquor 1-2 pt every day 10 years ago, quit 10 years ago) Physical Exam Physical Exam Vital Signs: Temperature: 97.8, Source: Temporal, Heart Rate: 65, Respiratory Rate: 16, BP: 140/72, Pulse Oximetry: 97, Weight: 104.800 Oxygen Flow Rate: 0 Physical Exam General: Alert, awake, oriented, not in acute distress HEENT: Icterus present, PERRLA, pallor, lymphadenopathy, carotid bruit Respiratory system: Bilateral vesicular breath sounds heard, no adventitious breath sounds CVS: S1-S2 heard, grade 3/6 HSM in the mitral area radiating to the tricuspid area, grade 2/6 ESM in the aortic area GI: Rigid, tenderness in the upper epigastrium, no organomegaly, no guarding/rigidity, bowel sounds present Neuro: No focal neurological deficits present Mental status exam: alert and consciousness, orientation, memory, speech - Cranial nerve test: Cranial nerves 2-12 intact - Motor system: Nutrition, Tone 3+, Power 5/5, no involuntary movements - Sensory system: Intact - Reflex testing: Biceps, triceps and knee reflexes 2+ - Cerebellar: Normal Extremities: No edema cyanosis clubbing/deformities Skin: Yellowish discoloration of the skin on the trunk region, Warm and dry Progress Results/Orders Results/Orders Completed Orders - OHLJUANIS ESPINAL MD Cbc/Diff (09/23/25 10:47) BMP (09/23/25 10:47) Lipase (09/23/25 10:47) CMP (09/23/25 10:47) Ua W/Microscopic, Cult If Ind (09/23/25 15:56) Vital Signs 09/23/25 09/23/25 09/23/25 09/23/25 10:41 10:56 11:01 11:43 Temp 97.8 97.8 Pulse 84 65 Resp 18 16 15 B/P (MAP) 168/95 140/72 (94) Pulse Ox 96 97 O2 Flow Rate 0 0 09/23/25 09/23/25 09/23/25 09/23/25 11:46 14:10 14:55 15:55 Temp 97.8 97.8 97.8 97.8 Pulse 64 60 60 61 Resp 15 15 14 16 B/P (MAP) 156/79 (104) 188/92 (124) 141/74 (96) Pulse Ox 96 95 93 96 O2 Flow Rate 0 0 0 0 09/23/25 16:31 Temp 97.8 Resp 16 B/P (MAP) 149/75 Pulse Ox 95 Laboratory Tests Test 09/23/25 11:08 09/23/25 15:56 White Blood Count 5.7 Red Blood Count 3.84 L Hemoglobin 13.6 L Hematocrit 38.3 L Mean Corpuscular Volume 99.9 H Mean Corpuscular Hemoglobin 35.4 H Mean Corpuscular Hemoglobin Concent 35.4 Red Cell Distribution Width 12.9 Platelet Count 169 Mean Platelet Volume 8.6 Neutrophils (%) (Auto) 79.1 H Lymphocytes (%) (Auto) 11.5 L Monocytes (%) (Auto) 8.4 Eosinophils (%) (Auto) 0.4 Basophils (%) (Auto) 0.6 Neutrophils # (Auto) 4.5 Lymphocytes # (Auto) 0.7 L Monocytes # (Auto) 0.5 Eosinophils # (Auto) 0.0 Basophils # (Auto) 0.0 CBC Comment Sodium Level 138 Potassium Level 3.5 Chloride Level 101 Carbon Dioxide Level 31.8 Anion Gap 5 L Blood Urea Nitrogen 16 Creatinine 1.02 Estimated GFR/1.73 m2 71 BUN/Creatinine Ratio 15.7 Glucose Level 139 H Calcium Level 9.0 Total Bilirubin 3.9 H Aspartate Amino Transf (AST/SGOT) 138 H Alanine Aminotransferase (ALT/SGPT) 184 H Alkaline Phosphatase 606 H Total Protein 8.7 H Albumin 3.1 L Globulin 5.6 H Albumin/Globulin Ratio 0.6 L Lipase 27 Chemistry Comments Urine Specimen Description Urinal Urine Color Sofy Urine Clarity Clear Urine pH 5.5 Urine Specific Caspar 1.020 Urine Protein Trace Urine Glucose (UA) Negative Urine Ketones Negative Urine Occult Blood Negative Urine Nitrite Negative Urine Bilirubin Moderate Urine Urobilinogen 4.0 H Urine Leukocyte Esterase Negative Urine RBC 0-2 Urine WBC 0-4 Urine Squamous Epithelial Cells Few Urine Amorphous Urates 1+ Urine Bacteria None seen Urine Mucus Moderate Urine Culture Indicated Not ind Volume Urine Centrifuged 10 ml Urine Comment Medical Decision Making Additional information obtaine: N/A Findings A 75-year-old male presented with intermittent abdominal pain in the epigastric region, history of hepatitis a probable liver cirrhosis that is being evaluated. Differential Diagnosis cbd stone, pancreatitis, pud Departure Time of Disposition: 16:12 Disposition: 01 HOME / SELF CARE / HOMELESS Impression: Primary Impression: Abdominal pain Qualified Codes: R10.13 - Epigastric pain Discharge Instructions: Abdominal Pain (Nonspecific) Additional Instructions: Return tomorrow for an MRCP , return sooner if you develop fevers or chills Referrals: NO PRIMARY CARE PROVIDER (PCP) Prescriptions Benzonatate* (Benzonatate*) 100 Mg Capsule 1 CAP PO Q6H PRN for cough, #30 CAP Prov: JUANIS SALAZAR MD 09/23/25 ONDANSETRON ODT 4mg tablet (ONDANSETRON ODT) 4 Mg Tab.rapdis 1 TABLET PO Q6H PRN for nausea/vomiting, #12 TABLET Prov: JUANIS SALAZAR MD 09/23/25 Additional Comment Seen with PA/ENGINEERING PROGRAMMER The patient was seen with the medical office specialist. I have reviewed the residence note and agree with the note and the assessment and plan as written. I've individually examined the patient. And I have supervised all aspects of the residents care. Signature Scribe Signature: None Attestation: Documented return by the resident, reviewed and adjusted by Dr. Salazar The note accurately reflects work and decisions made by me.Juanis Salazar MD 09/24/25 13:49 RAVI MEJIA, RES Sep 23, 2025 11:20 JUANIS SALAZAR MD Sep 23, 2025 16:12
[2025-09-23 11:41] LABS: CREATININE 1.02 MG/DL (0.60-1.10); TOTAL CARBON DIOXIDE 31.8 MMOL/L (24-32); eCRCL 68 ML/MIN; eGFR 71 ML/MIN
[2025-09-23] MEDS: ondansetron/PF 4mg/2ml inj IV ONE ×2 (11:43→15:51)
[2025-09-23] MEDS: mag hydrox/Alum hydrox/simeth 30ml oral suspension PO ONE (11:43)
[2025-09-23] MEDS ORDERED: iohexol 300mg/ml 100ml inj. ONE (13:41)
--- NOTE | 2025-09-23 14:35 | RADIOLOGY REPORT ---
CLINICAL INFORMATION: Elevated live enzymes with alk phos. TECHNIQUE: Axial CT images of the abdomen and pelvis were obtained after the uneventful administration of 100 mL Omnipaque 300 IV contrast. Coronal and sagittal reformatted images were obtained, reviewed, and stored. All CT scans at this medical facility are performed using dose modulation techniques as appropriate to a performed exam including the following: Automated exposure control was utilized; adjustment of the MA and/or KV according to patient size; and use of iterative reconstruction technique. CTDIvol = 31.79 mGy DLP = 1705.33 mGy-cm COMPARISON: CT CT ABDOMEN PELVIS on DOS: 08/24/25 FINDINGS: Lung bases: Trace right pleural effusion with overlying atelectasis. Mild dependent atelectasis in the left lung base. Moderate hiatal hernia. Liver: Mild hepatic steatosis. Biliary: Postsurgical changes of prior cholecystectomy. Mild intrahepatic biliary ductal dilatation. Common bile duct is dilated up to 1 cm in diameter, appears more dilated compared to the prior CT exam. Spleen: Unremarkable. Pancreas: Unremarkable. No inflammatory changes, ductal dilatation, or mass identified. Adrenal glands: Unremarkable. No mass. Kidneys: No hydronephrosis. Low-attenuation lesions in both kidneys, the largest of which are consistent with cysts, while the smaller lesions are too small to characterize, but are also most likely cysts. Aorta/Vascular: Moderate atherosclerotic calcification. No abdominal aortic aneurysm. Lymph Nodes: No mass or lymphadenopathy. Bowel/mesentery: No small bowel obstruction. No free air or free fluid. Appendix is visualized and appears unremarkable. Scattered colonic diverticula without adjacent inflammatory changes to suggest diverticulitis. There is a focal fatty mass in the left anterior upper abdomen adjacent to the transverse colon measuring up to 3.4 cm, with thin rim of enhancement, unchanged compared to the prior exam, likely sequela of intraperitoneal focal fat infarction such as epiploic appendagitis. There is also a focal area of fatty tissue in the left upper abdomen abutting the diaphragm and body of the stomach measuring up to 3.1 cm with thin rim of soft tissue density, unchanged compared to the prior exam Pelvic organs: Enlarged prostate with mild impression on the bladder base. Bladder: Unremarkable. No mass. Abdominal wall: No mass or hernia. Bones: No acute fracture or focal intraosseous lesion. IMPRESSION: 1. Intrahepatic and extrahepatic biliary ductal dilatation. Findings are new compared to the prior CT. Common bile duct obstruction not excluded. Correlate with clinical findings. If clinically indicated, MRCP could be obtained to further characterize. 2. Moderate hiatal hernia. 3. Scattered colonic diverticula without adjacent inflammatory changes to suggest diverticulitis. 4. Focal areas of fatty tissue in the abdomen adjacent to the transverse colon and stomach, may be sequelae of intraperitoneal focal fat infarction as described above. No significant change compared to the prior exam. 5. Enlarged prostate. 6. Additional findings as detailed above.
[2025-09-23 15:55] VITALS: PULSE 61
[2025-09-23] MEDS ORDERED: ONDA-243 PO (16:13)
[2025-09-23] MEDS ORDERED: BENZ-38 PO (16:13)
[2025-09-23 16:16] LABS: LEUKOCYTE ESTERASE ,URINE NEGATIVE (Neg); NITRITES, URINE NEGATIVE (Neg); OCCULT BLOOD,URINE NEGATIVE (Neg)
[2025-09-23 16:31] VITALS: BP 149/75; RESP 16; TEMP 97.8; O2SAT 95
[2025-09-23 17:08] LABS: UA COLLECTION TYPE URINAL
[2025-09-23 17:09] LABS: MUCUS STRANDS MODERATE /LPF (Neg); SQUAMOUS EPITHELIAL CELL,UR FEW /LPF (FEW)
[2025-09-23 17:21] LABS: AMORPHOUS URATES 1+
== END 2025-09-23 16:40 | disposition home or self-care (01) ==
LOC: ER 10:41
DX: R10.13 Epigastric pain (principal); J45.909 Unspecified asthma, uncomplicated; I10 Essential (primary) hypertension; E78.5 Hyperlipidemia, unspecified; Z90.49 Acquired absence of other specified parts of digestive tract; Z79.899 Other long term (current) drug therapy
CPT/HCPCS: 36415; 74177; 80053; 81001; 83690; 85025; 96374; 96376; 99285; J2405; Q9967

== ENCOUNTER 2025-09-24 08:02 | Emergency (ER) | payer MEDICARE, BC ==
[~2025-09-24] VITALS: Ht 180.3 cm; Wt 103.7 kg
[~2025-09-24 08:02] MED LIST changes: +BENZ-38 PO; +ONDA-243 PO
[2025-09-24 08:05] VITALS: TEMP 98.3
--- NOTE | 2025-09-24 08:35 | Physician Documentation ---
History of Present Illness Chief Complaint: See Chief Complaint Stated Complaint: RECHECK Time Seen by MD: 08:29 Mode of Arrival: Ambulatory HPI This is a 75-year-old male who is status post cholecystectomy from two years ago. He reports that about five weeks ago, he had a fatty meal and since that time has had episodic issues with jaundice, what he describes as orange urine, and abdominal pain with cramping. He denies fevers or chills. He has had issues with nausea and vomiting. He was seen in this emergency department yesterday, at which point it was determined that he needs an MRCP. CT scan at that time showed ductal dilatation. Labs were remarkable for elevated transaminases with a total bilirubin of 3.9 AST 138, ALT 184, alkaline phosphatase 606. Normal lipase. Patient was mildly anemic with a hemoglobin of 13.6 and hematocrit of 38.3. Today, he reports that he is pain-free. Medication Reconciliation Allergies: Coded Allergies: No Known Allergies (Unverified , 09/27/22) Scheduled Albuterol Sulfate (Proventil Hfa), 2 PUFFS INH Q4H, (Reported) Atorvastatin Calcium (Atorvastatin Calcium), 1 TAB PO DAILY, (Reported) Fluticasone Propionate (Flovent Hfa), 44 MCG PO BID, (Reported) Lisinopril/Hydrochlorothiazide (Lisinopril-Hctz 10-12.5 mg Tab), 1 TAB PO DAILY, (Reported) Montelukast Sodium (Singulair), 1 TAB PO DAILY, (Reported) Omeprazole (Prilosec), 1 CAP PO QAM, (Reported) Scheduled PRN Benzonatate* (Benzonatate*), 1 CAP PO Q6H PRN for cough ONDANSETRON ODT 4mg tablet (Ondansetron Odt), 1 TABLET PO Q6H PRN for nausea/vomiting Past Medical History Other Past Surgical History: Hiatal hernia surgery Cholecystectomy Alcohol Use: Sober Review of Systems ROS As stated above in the HPI, otherwise all systems are reviewed and negative. Physical Exam Vital Signs: Temperature: 98.3, Source: Oral, Heart Rate: 93, Respiratory Rate: 15, BP: 116/56, Pulse Oximetry: 95, Weight: 103.700 Oxygen Flow Rate: 0 Physical Exam General: Alert, no apparent distress. HEENT: PERRL, EOMI, no injection, moist mucous membranes. Neck: Full range of motion. Respiratory: Lungs clear, no respiratory distress. Chest: No accessory muscle use. Cardiovascular: Regular rate and rhythm, no murmurs. Gastrointestinal: Soft, diffuse mild TTP, nondistended. Bowels sounds present. Extremities: Normal range of motion, no deformity. Neurologic: Oriented x4. Psychiatric: Normal mood and affect. Skin: Jaundiced, warm and dry. No edema, no ecchymosis. Progress Progress Note 1027: Discussed obstructing gallstone on MRCP with call or contact centre manager GI Dr. Curry who advises that patient will need to be transferred as she does not do ERCP. Results/Orders Results/Orders Orders - SHOSHANA MCMILLAN [employer] MRCP (09/24/25 08:31) Vital Signs 09/24/25 09/24/25 09/24/25 08:05 08:19 08:21 Temp 98.3 Pulse 87 93 Resp 18 15 15 B/P (MAP) 119/70 116/56 (76) Pulse Ox 99 95 O2 Flow Rate 0 EKG/XRAY/CT/US/VASC/MRI MRI : Impression [facility] [address] [address] MRI Patient: KASHIF RATLIFF Medical Record: [id number] [facility] : 1950, Age: 75 Sex: Male Location: ER Patient Status: [facility] ER Service Date/Time: 09/24/25944 Ordering Physician: SHOSHANA MCMILLAN NP Exam: MRCP CLINICAL INFORMATION: Elevated transaminases. Abnormal CT. TECHNIQUE: Multisequence multiplanar MRI images of the abdomen were obtained without IV contrast. Heavily T2-weighted MRCP images were obtained. 3D MRCP images were created. COMPARISON: CT of the abdomen and pelvis dated 09/23/2025. FINDINGS: Postsurgical changes of prior cholecystectomy. Again seen is intrahepatic and extrahepatic biliary ductal dilatation. Common bile duct measures up to 0.8 cm in diameter, mildly dilated. Filling defect in the distal common bile duct, possible obstructing gallstone. Moderate hiatal hernia visualized. Trace right pleural effusion with overlying atelectasis and likely atelectasis in the left lung base. There are bilateral T2 hyperintense lesions in the kidneys, right greater than left, likely cysts. No other significant abnormality identified in the abdomen non limited noncontrast enhanced images. IMPRESSION: 1. Intrahepatic and extrahepatic biliary ductal dilatation. Filling defect in the distal common bile duct, suspected obstructing gallstone. Correlate with clinical findings. 2. Moderate hiatal hernia. 3. Additional findings as described above. Electronically Signed by:MANI THAO DO Date & Time: 09/24/25 1014 Dictated by: MANI THAO DO Dictation date and time: 09/24/25 0945 Primary Care Provider: NO PRIMARY CARE PROVIDER cc: SHOSHANA MCMILLAN [employer]TER ~ Medical Decision Making Additional information obtaine: old records Findings Was seen in this ER yesterday 09/23/25 Differential Dx:Considerations: Urolithiasis Additional Comments Patient found to have retained stone per MRCP. Contacted call or contact centre manager GI, Dr. Robins and she advises that patient will need to transfer as she does not do ERCP. Transfer process initiated but patient chose to leave AMA. Most Likely Diagnoses: Choledocholithiasis (retained common bile duct stone): This is the most probable diagnosis in a post-cholecystectomy patient presenting with ductal dilatation, jaundice, and elevated transaminases. Retained stones occur in approximately 5- 10% of patients after cholecystectomy and classically present with constant epigastric pain radiating to the back, jaundice, and transaminase elevations. The ductal dilatation on imaging strongly supports biliary obstruction. The positive hepatitis A test may represent acute infection superimposed on biliary obstruction, or could be a false positive/past infection requiring further serologic clarification. [1] Acute hepatitis A infection: The positive hepatitis A test with elevated transaminases and jaundice fits the classic presentation of acute HAV infection, which causes symptomatic disease with jaundice in >70% of adults. However, hepatitis A typically does not cause significant ductal dilatation unless there is concurrent biliary pathology. The post-cholecystectomy status and ductal dilatation suggest a structural biliary issue rather than isolated viral hepatitis. [2] Bile duct injury with stricture formation: Post-cholecystectomy bile duct strictures can present with delayed symptoms including cholestatic jaundice, choluria, and pruritus. Strictures may develop weeks to years after surgery and cause progressive ductal dilatation proximal to the obstruction. The elevated transaminases could reflect cholestatic injury or concurrent hepatitis. [3] Ascending cholangitis: The combination of jaundice, ductal dilatation, and biliary obstruction (from stone or stricture) creates the classic setup for cho langitis. While fever is a cardinal feature, its absence does not exclude the diagnosisthe BILE criteria (Biliary imaging abnormalities, Inflammatory test abnormalities, Liver test abnormalities, Exclusion of cholecystitis/pancreatitis) identify high-risk patients. [4] Drug-induced liver injury: Hepatocellular injury from medications like diclofenac presents with prominent transaminase elevations and jaundice, typically 5-90 days after exposure. However, DILI does not typically cause ductal dilatation, making this less likely as the primary diagnosis unless there is concurrent biliary pathology. [5] Most Important Not to Miss Diagnoses: Ascending cholangitis: Rule out by assessing for fever, rigors, and signs of sepsis in addition to the jaundice and biliary obstruction already present. Check inflammatory markers (WBC, CRP), blood cultures, and consider urgent ERCP if clinical suspicion is high. The presence of biliary obstruction with ductal dilatation places this patient at significant risk, and cholangitis can progress to sepsis and multiorgan failure. [3-4] Fulminant hepatic failure: Assess for encephalopathy (using [place] criteria), coagulopathy (INR), and signs of hepatic synthetic dysfunction. Check ammonia levels, factor V or VII levels if available, and monitor mental status closely. While hepatitis A rarely causes fulminant failure (<1% of cases), the combination of acute hepatitis and biliary obstruction increases risk. Early hepatology consultation and consideration of transfer to a transplant center is essential if encephalopathy or severe coagulopathy develops. [2][6] Cholangiocarcinoma: This malignancy presents with painless jaundice, ductal dilatation, and cholestatic liver enzyme patterns. Rule out with high-quality cross-sectional imaging (MRCP or CT with contrast) looking for mass lesions, and tumor markers (CA 19-9, CEA). Perihilar cholangiocarcinoma ([place] tumor) is the most common type and can mimic benign strictures. [7] Pancreatic head adenocarcinoma: Tumors at the pancreatic head cause biliary obstruction with jaundice (49%), dark urine, and ductal dilatation. Evaluate with pancreatic protocol CT or MRI/MRCP. Look for associated symptoms including weight loss, new-onset diabetes, and steatorrhea from exocrine insufficiency. [8] Departure Time of Disposition: 10:45 Disposition: 01 HOME / SELF CARE / HOMELESS Impression: Primary Impression: Choledocholithiasis with obstruction Condition: Stable Discharge Instructions: Cholelithiasis Additional Instructions: You are leaving against medical advice and choosing to present to a facility that has ERCP capability. Please return with any other concerns. Referrals: NO PRIMARY CARE PROVIDER (PCP) Education Educated: Patient, Family Educated regarding: diagnosis, treatment, prognosis, need for follow up Signature Scribe Signature: x Attestation: The note accurately reflects work and decisions made by me.Shoshana Browne NP 09/24/25 10:46 SHOSHANA MCMILLAN NP Sep 24, 2025 08:35
--- NOTE | 2025-09-24 10:16 | RADIOLOGY REPORT ---
CLINICAL INFORMATION: Elevated transaminases. Abnormal CT. TECHNIQUE: Multisequence multiplanar MRI images of the abdomen were obtained without IV contrast. Heavily T2-weighted MRCP images were obtained. 3D MRCP images were created. COMPARISON: CT of the abdomen and pelvis dated 09/23/2025. FINDINGS: Postsurgical changes of prior cholecystectomy. Again seen is intrahepatic and extrahepatic biliary ductal dilatation. Common bile duct measures up to 0.8 cm in diameter, mildly dilated. Filling defect in the distal common bile duct, possible obstructing gallstone. Moderate hiatal hernia vis ualized. Trace right pleural effusion with overlying atelectasis and likely atelectasis in the left lung base. There are bilateral T2 hyperintense lesions in the kidneys, right greater than left, likely cysts. No other significant abnormality identified in the abdomen non limited noncontrast enhanced images. IMPRESSION: 1. Intrahepatic and extrahepatic biliary ductal dilatation. Filling defect in the distal common bile duct, suspected obstructing gallstone. Correlate with clinical findings. 2. Moderate hiatal hernia. 3. Additional findings as described above.
[2025-09-24 10:48] VITALS: BP 117/64; PULSE 76; RESP 15; O2SAT 95
== END 2025-09-24 11:05 | disposition home or self-care (01) ==
LOC: ER 08:03
DX: K80.71 Calculus of gallbladder and bile duct without cholecystitis with obstruction (principal); D64.9 Anemia, unspecified; Z79.899 Other long term (current) drug therapy; Z90.49 Acquired absence of other specified parts of digestive tract
CPT/HCPCS: 74181; 99284